=== PATIENT | female | born 1970 | race Caucasian/White ===

== ENCOUNTER 2017-03-31 07:48 | Inpatient (IN) | payer OTHER ==
[~2017-03-31] VITALS: Ht 149.9 cm; Wt 45.4 kg
[2017-03-31] VITALS (7 sets, daily range): BP systolic 99–211; BP diastolic 64–129
--- NOTE | 2017-03-31 08:20 | NUR ---
PT AMBULATED TO BED 3.
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
--- NOTE | 2017-03-31 08:23 | NUR ---
Patient being evaluated by Dr. Reina at bedside.
[2017-03-31] MEDS ORDERED: NACL 0.9% 1,000 ML IV SCH (08:26)
[2017-03-31] MEDS ORDERED: NACL 0.9% 1,000 ML IV ONE (08:28)
[2017-03-31] MEDS ORDERED: cefTRIAXone 2,000 MG in DEXTROSE 5% 100 ML IV ONE (08:30)
--- NOTE | 2017-03-31 08:40 | NUR ---
Ultrasound at bedside.
[2017-03-31 08:52] LABS: BASOPHILS # (AUTO) 0.2 K/uL (0.00-0.22); EOSINOPHILS # (AUTO) 0.2 K/uL (0-0.4); LYMPHOCYTES # (AUTO) 1.3 K/uL (2.5-16.5); MONOCYTES # (AUTO) 0.6 K/uL (0.8-1.0)
[2017-03-31] MEDS ORDERED: cefTRIAXone 2,000 MG VIAL ONE (08:55)
[2017-03-31 08:58] LABS: BASOPHILS % (AUTO) 2.7 % (0.0-2.0); EOSINOPHILS % (AUTO) 2.3 % (0.0-4.0); HEMATOCRIT 44.3 % (36-48); HEMOGLOBIN 14.1 g/dL (12.0-16.0); LYMPHOCYTES % (AUTO) 18.1 % (20.5-51.1); MEAN CORPUSCULAR HEMOGLOBIN 27 pg (27-31); MEAN CORPUSCULAR HGB CONC 32 g/dL (33-37); MEAN CORPUSCULAR VOLUME 85 fL (80-94); MONOCYTES % (AUTO) 9.1 % (1.7-9.3); NEUTROPHILS # (AUTO) 4.7 K/uL (1.8-7.7); NEUTROPHILS % (AUTO) 67.8 % (42.2-75.2); PLATELET COUNT (AUTO) 318 K/uL (140-450); RED BLOOD CELL COUNT(AUTO) 5.21 MIL/uL (4.20-5.40); RED CELL DISTRIBUTION WIDTH 12.4 % (11.6-13.7)
[2017-03-31 09:06] LABS: APPEARANCE,URINE HAZY (CLEAR); BILIRUBIN,URINE NEGATIVE (NEGATIVE); BLOOD, URINE TRACE-I (NEGATIVE); COLOR,URINE YELLOW (YELLOW); LEUKOCYTE ESTERASE ,URINE NEGATIVE (NEGATIVE); NITRITE, URINE NEGATIVE (NEGATIVE); PH,URINE 6.5 (5.0-9.0); PROTEIN,URINE NEGATIVE (NEGATIVE); UGLUCOSE 3+ (NEGATIVE); UROBILINOGEN,URINE 0.2 EU/dL (0.2 - 1)
[2017-03-31 09:07] LABS: ALBUMIN 3.5 g/dL (3.4-5.0); ANION GAP 13.2 (8-16); CALCIUM 8.7 mg/dL (8.5-10.1); CARBON DIOXIDE 28.7 mmol/L (21-32); CREATININE 0.7 mg/dL (0.6-1.3); TOTAL BILIRUBIN 0.4 mg/dL (0.0-1.0); TOTAL PROTEIN, SERUM 7.8 g/dL (6.4-8.2)
[2017-03-31 09:08] LABS: POTASSIUM 2.9 mmol/L (3.5-5.1)
[2017-03-31 09:10] LABS: INR 1.1 (0.8-1.2); PARTIAL THROMBOPLASTIN TIME 25.6 secs (22-35.6); PROTHROMBIN TIME 10.3 secs (10.8-13.4)
[2017-03-31] MEDS ORDERED: POTASSIUM CHL 40 MEQ/ D5-1/2NS 1,000 ML IV ONE (09:10)
--- NOTE | 2017-03-31 09:10 | NUR ---
X-Ray at bedside.
[2017-03-31 09:11] LABS: AMPHETAMINE, URINE POS. ng/ml (NEG <=1000); BARBITURATE, URINE NEG. ng/ml (NEG <=200); BENZODIAZEPINE, URINE NEG. ng/mL (NEG <=200); CANNABINOID, URINE NEG. ng/mL (NEG <=50); COCAINE, URINE NEG. ng/mL (NEG <=300); OPIATE, URINE NEG. ng/mL (NEG <=2000); PHENCYCLIDINE SCREEN,URINE NEG. ng/mL (NEG <=25)
[2017-03-31 09:12] LABS: ALANINE AMINOTRANSFERASE 19 U/L (12-78); ALBUMIN 3.5 g/dL (3.4-5.0); ALCOHOL, BLOOD < 3 mg/dL (<3); ALKALINE PHOSPHATASE 138 U/L (46-116); ASPARTATE AMINOTRANSFERASE 20 U/L (15-37); BILIRUBIN,DIRECT 0.1 mg/dL (0.0-0.3); TOTAL BILIRUBIN 0.4 mg/dL (0.0-1.0); TOTAL PROTEIN, SERUM 7.9 g/dL (6.4-8.2)
[2017-03-31 09:20] LABS: WBC,URINE 0-5 (RARE) /HPF (0-5)
[2017-03-31 09:21] LABS: BACTERIA,URINE FEW /HPF (None Seen); MUCUS,URINE 2+ /LPF (None Seen); SQUAMOUS EPITHELIAL CELL,UR 4-10 (MOD) /LPF (0-3 (FEW))
[2017-03-31 09:25] LABS: LACTIC ACID 1.8 mmol/L (0.4-2.0)
--- NOTE | 2017-03-31 10:12 | NUR ---
Patient appears to be resting comfortably in bed. Respirations even and unlabored. Will continue to monitor.
[2017-03-31] MEDS ORDERED: HYDROmorphone 1 MG/ML AMP IVP ONE (10:45)
--- NOTE | 2017-03-31 11:43 | NUR ---
REPORT CALLED TO AMAURY ROTHMAN
--- NOTE | 2017-03-31 11:49 | NUR ---
AWAITING ADMITTING ORDERS TO TAKE PT TO FLOOR; WILL CONTINUE TO MONITOR.
[2017-03-31] MEDS: NACL 0.9% 1,000 ML IV SCH (12:11)
[2017-03-31] MEDS ORDERED: DEXTROSE 50% 50 ML SYR IVP PRN ×2 (12:15→14:20)
[2017-03-31] MEDS ORDERED: LORazepam 2 MG/ML VIAL IVP PRN (12:15)
[2017-03-31] MEDS ORDERED: ACETAMINOPHEN 325 MG TAB PO PRN (12:15)
[2017-03-31] MEDS ORDERED: ONDANSETRON 4 MG/2 ML VIAL IVP PRN (12:15)
--- NOTE | 2017-03-31 12:20 | NUR ---
Patient will be admitted to care of DR. ANTUNEZ. Admited to TELEMETRY. Will go to room 109A. Belongings list completed. Report to AMAURY ROTHMAN.
--- NOTE | 2017-03-31 12:25 | NUR ---
PT ARRIVED ON UNIT VIA GURNEY. PT IS AAOX4 AND SHOWS NO S/S OF DISTRESS. PT AMB TO BED WITH STEADY GAIT. PT IV NOTED ON THE L AC 20 GAUGE. PT ON ROOM AIR. PT DENIES PAIN. NOTED REDNESS ON THE RIGHT ARM AND RIGHT BREAST. PT BED IS LOWERED, SEMI-FOWLERS, AND WITH CALL LIGHT WITHIN REACH. WILL CONTINUE TO MONITOR.
[2017-03-31] MEDS ORDERED: PIPERACILLIN/TAZOBACTAM 3.375 GM in DEXTROSE 5% 50 ML IV SCH (13:00)
--- NOTE | 2017-03-31 13:30 | NUR ---
PT RIGHT ARM IS RED TENDER AND SWOLLEN. RIGHT BREAST IS DARK RED, INFLAMED, AND HARD TO THE TOUCH. RIGHT NIPPLE HAS WHITE DISCHARGE. PT STATES NO PAIN AT THIS TIME AND SHOWS NO S/S OF DISTRESS.
--- NOTE | 2017-03-31 14:00 | NUR ---
ADMINISTER SCHEDULED MEDICATION. PT TOLERATED WELL AND SHOWS NO S/S OF DISTRESS. PT HAS VISITORS AT BEDSIDE. WILL CONTINUE TO MONITOR.
[2017-03-31] MEDS: PIPER/TAZO 3.375GM/D5W PREMIX 50 ML IV SCH ×2 (14:01→20:33)
[2017-03-31] MEDS ORDERED: INSULIN LISPRO SLIDING SCALE 100 UNITS/ML VIAL SUBQ PRN (14:20)
[2017-03-31] MEDS ORDERED: LABETALOL 100 MG TAB PO SCH (14:30)
[2017-03-31] MEDS: POTASSIUM CHLORIDE 10 MEQ TABER PO SCH ×2 (15:28→20:32)
--- NOTE | 2017-03-31 15:30 | NUR ---
ADMINISTER SCHEDULED MEDICATION. PT TOLERATED WELL. PT SHOWS NO S/S OF DISTRESS. PT HAS FAMILY AT BEDSIDE.
--- NOTE | 2017-03-31 16:00 | NUR ---
PT IS IRRITABLE AND C/O PAIN AT THE RIGHT BREAST. WILL MEDICATE.
[2017-03-31] MEDS ORDERED: BLOOD GLUCOSE MONITORING 1 DEV DEV FS SCH (16:30)
--- NOTE | 2017-03-31 16:30 | NUR ---
ADMINISTERED PAIN MEDICATION. WILL REASSESS.
[2017-03-31] MEDS: BLOOD GLUCOSE MONITORING 1 DEV DEV FS SCH ×2 (16:31→20:48)
[2017-03-31] MEDS: HYDROcodone/APAP 5/325 MG 1 TAB TAB PO PRN ×2 (16:33→20:33)
[2017-03-31] MEDS: INSULIN LISPRO SLIDING SCALE 100 UNITS/ML VIAL SUBQ PRN ×2 (16:34→21:05)
[2017-03-31] MEDS ORDERED: amLODIPine 5 MG TAB PO SCH (16:45)
--- NOTE | 2017-03-31 17:10 | NUR ---
PT IS STILL COMPLAINING OF PAIN 07/04 WILL ADMINISTER OTHER FORM OF PRN MEDICATION.
--- NOTE | 2017-03-31 17:25 | NUR ---
ADMINISTERED PAIN MEDICATION. WILL REASSESS.
[2017-03-31] MEDS: MORPHINE SULFATE 2 MG/ML SYR IVP PRN ×2 (17:32→23:17)
--- NOTE | 2017-03-31 18:00 | NUR ---
REASSESS PT PAIN LEVEL. PT STATES IT IS STILL 8/10. BP 104/73, HR 88, SAT O2 96, RESPIRATIONS 15.
--- NOTE | 2017-03-31 19:02 | NUR ---
PT SEEN BY DR. ARCHER. WILL AWAIT ORDERS.
--- NOTE | 2017-03-31 19:20 | NUR ---
PT AMBULATED WITH ASSISTANCE TO THE BATHROOM. PT HAS STEADY GAIT. PT VOIDED. PT BP IS 107/89, HR 79, RESPIRATIONS 16. PT DENIES SOB, LIGHTHEADEDNESS, DIZZINESS, AND N/V. PT CONTINUES TO HAVE PAIN AT R BREAST. PT IS MADE AWARE OF HER BLOOD PRESSURE. PT RESTING IN BED LOWERED, SEMI-FOWLERS, AND WITH CALL LIGHT WITHIN REACH.
--- NOTE | 2017-03-31 19:35 | NUR ---
GAVE PT REPORT AT BEDSIDE. PT ENDORSED IN STABLE CONDITION.
--- NOTE | 2017-03-31 19:40 | NUR ---
RECEIVED REPORT ON PT FROM AM NURSE. PT ON STABLE CONDITION. JUST CAME BACK FROM THE BATHROOM WITH ASSISTANCE. ON TELE MONITOR. HAS IVF INFUSING WELL ON THE LT AC #20. RT BREAST IS RED AND INFLAMED. RT ARM IS SWOLLEN AND TENDER. PLAN OF CARE DISCUSSED AND VERBALIZED UNDERSTANDING. CALL LIGHT PLACED WITHIN EASY REACH. WILL CONTINUE TO MONITOR.
--- NOTE | 2017-03-31 22:15 | NUR ---
ASSESS PT AT THIS TIME. RESTING IN BED . STILL WITH PAIN BUT LESS THAN AN HOUR AFTER PAIN MED WAS GIVEN.
--- NOTE | 2017-03-31 22:43 | NUR ---
MADE ROUNDS . PT IS SLEEPING AT THIS TIME. NO S/S OF ANY PAIN NOTED.
--- NOTE | 2017-03-31 23:17 | NUR ---
PT AWAKE, CRYING, IN SEVERE RT BREAST PAIN. MEDICATED ORDERED. WILL CONTINUE TO MONITOR
[2017-04-01] MEDS: NACL 0.9% 1,000 ML IV SCH ×4 (00:41→23:28)
--- NOTE | 2017-04-01 03:00 | NUR ---
PT SLEEPING WELL AT THIS TIME. NO S/S OF ANY DISCOMFORT NOTED.
[2017-04-01 04:40] VITALS: BP 143/85
[2017-04-01] MEDS: PIPER/TAZO 3.375GM/D5W PREMIX 50 ML IV SCH ×3 (04:59→21:02)
--- NOTE | 2017-04-01 05:00 | NUR ---
ASLEEP. NO S/S OF ANY PAIN AT THIS TIME.
[2017-04-01 05:49] LABS: BASOPHILS # (AUTO) 0.1 K/uL (0.00-0.22); BASOPHILS % (AUTO) 1.6 % (0.0-2.0); EOSINOPHILS # (AUTO) 0.2 K/uL (0-0.4); EOSINOPHILS % (AUTO) 2.8 % (0.0-4.0); HEMATOCRIT 37.3 % (36-48); HEMOGLOBIN 11.9 g/dL (12.0-16.0); LYMPHOCYTES # (AUTO) 1.5 K/uL (2.5-16.5); LYMPHOCYTES % (AUTO) 22.9 % (20.5-51.1); MEAN CORPUSCULAR HEMOGLOBIN 27 pg (27-31); MEAN CORPUSCULAR HGB CONC 32 g/dL (33-37); MEAN CORPUSCULAR VOLUME 86 fL (80-94); MONOCYTES # (AUTO) 0.6 K/uL (0.8-1.0); MONOCYTES % (AUTO) 9.5 % (1.7-9.3); NEUTROPHILS % (AUTO) 63.2 % (42.2-75.2); PLATELET COUNT (AUTO) 276 K/uL (140-450); RED BLOOD CELL COUNT(AUTO) 4.36 MIL/uL (4.20-5.40); RED CELL DISTRIBUTION WIDTH 12.8 % (11.6-13.7); WHITE BLOOD COUNT (AUTO) 6.4 K/uL (4.8-10.8)
[2017-04-01] MEDS: BLOOD GLUCOSE MONITORING 1 DEV DEV FS SCH ×4 (05:58→21:02)
[2017-04-01 06:39] LABS: ALBUMIN 2.6 g/dL (3.4-5.0); ANION GAP 11.7 (8-16); CALCIUM 7.9 mg/dL (8.5-10.1); CARBON DIOXIDE 24.5 mmol/L (21-32); MAGNESIUM 1.8 mg/dL (1.8-2.4); POTASSIUM 4.2 mmol/L (3.5-5.1); TOTAL BILIRUBIN 0.3 mg/dL (0.0-1.0)
[2017-04-01] MEDS: INSULIN LISPRO SLIDING SCALE 100 UNITS/ML VIAL SUBQ PRN ×4 (06:44→21:02)
--- NOTE | 2017-04-01 06:44 | NUR ---
BLOOD SUGAR WAS CHECKED THIS AM. RESULT 181. INSULIN COVERAGE GIVEN.
[2017-04-01] MEDS: POTASSIUM CHLORIDE 10 MEQ TABER PO SCH ×2 (06:49→17:59)
[2017-04-01 07:02] LABS: CREATININE 0.3 mg/dL (0.6-1.3)
--- NOTE | 2017-04-01 07:15 | NUR ---
ENDORSED PT IN STABLE CONDITION TO AM NURSE.
--- NOTE | 2017-04-01 07:16 | NUR ---
RECEIVED PT ASLEEP BUT EASILY AROUSABLE, AAOX4 WITH NO S/S OF RESPIRATORY DISTRESS OR DISCOMFORT. WITH IV ACCESS AT LEFT AC INFUSING FLUIDS WELL. WITH RIGHT BREAST SWELLING AND ABSCESS, NO DRAINAGE NOTED. SWELLING OF RIGHT HAND NOTED. DISCUSSED PLAN OF CARE, PT VERBALIZED UNDERSTANDING. CALL LIGHT WITHIN REACH, WILL CONTINUE TO MONITOR.
[2017-04-01 08:00] VITALS: BP 143/87
[2017-04-01] MEDS: amLODIPine 5 MG TAB PO SCH (08:50)
[2017-04-01] MEDS: MORPHINE SULFATE 2 MG/ML SYR IVP PRN ×2 (08:51→18:09)
[2017-04-01] MEDS: ENOXAPARIN 40 MG/0.4 ML SYR SUBQ SCH (08:51)
--- NOTE | 2017-04-01 08:51 | NUR ---
DUE MEDS GIVEN, PT TOLERATED WELL. PT COMPLIANED OF PAIN ON RIGHT BREAST, MORPHINE GIVEN. DR ANTUNEZ AT BEDSIDE
--- NOTE | 2017-04-01 10:20 | NUR ---
PT ASLEEP, NO S/S OF DISTRESS NOTED. CALL LIGHT WITHIN REACH, WILL CONTINUE TO MONITOR
[2017-04-01 12:00] VITALS: BP 137/87
--- NOTE | 2017-04-01 12:20 | NUR ---
PT PICKED UP BY RADIOLOGY FOR CT WITH CONTRAST ON A WHEELCHAIR IN STABLE CONDITION
--- NOTE | 2017-04-01 13:15 | NUR ---
PT BACK FROM CT, EATING LUNCH WITH GOOD APPETITE
--- NOTE | 2017-04-01 13:20 | NUR ---
LEN FROM [place] AT BEDSIDE
--- NOTE | 2017-04-01 13:25 | NUR ---
CLINICAL REVIEW FAXED TO [facility] AND [facility].
[2017-04-01] MEDS: HYDROcodone/APAP 5/325 MG 1 TAB TAB PO PRN (13:59)
--- NOTE | 2017-04-01 13:59 | NUR ---
FAXED REVIEW TO [facility] AT [phone] FAXED REVIEW TO [facility] AT [phone]. PHONE NUMBER ADRIANA AT [phone]
--- NOTE | 2017-04-01 15:18 | NUR ---
PT ASLEEP, NO S/S OF DISTRESS. CALL LIGHT WITHIN REACH, WILL CONTINUE TO MONITOR.
[2017-04-01 16:00] VITALS: BP 127/78
--- NOTE | 2017-04-01 16:11 | NUR ---
PT LEFT UNIT FOR NUCLEAR MEDICINE IN STABLE CONDITION ON A WHEELCHAIR ACCOMPANIED BY LEN
--- NOTE | 2017-04-01 17:50 | NUR ---
PT BACK TO UNIT FROM NM. STABLE
--- NOTE | 2017-04-01 19:28 | NUR ---
PT ENDORSED TO AMAURY STUBBS IN STABLE CONDITION FOR CONTINUITY OF CARE
--- NOTE | 2017-04-01 19:30 | NUR ---
ASSUMED CARE OF PATIENT, AWAKE, ALERT AND ORIENTED. FAMILY AT BEDSIDE. NO COMPLAINS. CALL LIGHT WITHIN REACH.
[2017-04-01 20:00] VITALS: BP 123/74
--- NOTE | 2017-04-01 20:00 | NUR ---
PLAN OF CARE DISCUSSED WITH PATIENT, VERBALIZED UNDERSTANDING WELL. CALL LIGHT WITHIN REACH. VITAL SIGNS STABLE. AFEBRILE.
--- NOTE | 2017-04-01 21:00 | NUR ---
DUE MEDS GIVEN. HS SNACK GIVEN. CALL LIGHT WITHIN REACH.
--- NOTE | 2017-04-02 00:15 | NUR ---
VITAL SIGNS STABLE. NO COMPLAINS. AFEBRILE. CALL LIGHT WITHIN REACH.
[2017-04-02 00:41] VITALS: BP 136/81
[2017-04-02] MEDS: MORPHINE SULFATE 2 MG/ML SYR IVP PRN ×3 (02:22→16:53)
[2017-04-02 04:28] VITALS: BP 138/84
--- NOTE | 2017-04-02 04:29 | NUR ---
SLEEPING WELL, EASILY AROUSABLE. NO COMPLAINS. AFEBRILE. VITAL SIGNS STABLE. CALL LIGHT WITHIN REACH.
[2017-04-02] MEDS: PIPER/TAZO 3.375GM/D5W PREMIX 50 ML IV SCH ×3 (04:43→20:01)
[2017-04-02] MEDS: BLOOD GLUCOSE MONITORING 1 DEV DEV FS SCH ×4 (06:08→20:28)
[2017-04-02] MEDS: INSULIN LISPRO SLIDING SCALE 100 UNITS/ML VIAL SUBQ PRN ×4 (06:11→20:29)
[2017-04-02 07:00] LABS: BASOPHILS # (AUTO) 0.1 K/uL (0.00-0.22); EOSINOPHILS # (AUTO) 0.2 K/uL (0-0.4); EOSINOPHILS % (AUTO) 2.6 % (0.0-4.0); HEMATOCRIT 36.3 % (36-48); HEMOGLOBIN 11.7 g/dL (12.0-16.0); LYMPHOCYTES % (AUTO) 12.5 % (20.5-51.1); MEAN CORPUSCULAR HEMOGLOBIN 27 pg (27-31); MEAN CORPUSCULAR HGB CONC 32 g/dL (33-37); MEAN CORPUSCULAR VOLUME 85 fL (80-94); MONOCYTES # (AUTO) 0.7 K/uL (0.8-1.0); MONOCYTES % (AUTO) 8.8 % (1.7-9.3); NEUTROPHILS # (AUTO) 5.9 K/uL (1.8-7.7); NEUTROPHILS % (AUTO) 75.1 % (42.2-75.2); PLATELET COUNT (AUTO) 248 K/uL (140-450); RED BLOOD CELL COUNT(AUTO) 4.28 MIL/uL (4.20-5.40); RED CELL DISTRIBUTION WIDTH 12.7 % (11.6-13.7); WHITE BLOOD COUNT (AUTO) 7.9 K/uL (4.8-10.8)
--- NOTE | 2017-04-02 07:17 | NUR ---
RECEIVED PT ASLEEP BUT EASILY AROUSABLE, AAOX4 WITH NO S/S OF RESPIRATORY DISTRESS, WITH IV ACCESS AT LEFT ACV INFUSING FLUIDS WELL. WITH RIGHT BREAST ABSCESS AND RIGHT ARM HARD TO TOUCH. DISCUSSED PLAN OF CARE, PT VERBALIZED UNDERSTANDING. CALL LIGHT WITHIN REACH, WILL CONTINUE TO MONITOR.
--- NOTE | 2017-04-02 07:17 | NUR ---
ENDORSED CARE AT BEDSIDE WITH ISHAAN REBOLLEDO, PATIENT IN STABLE CONDITION.
[2017-04-02 08:00] VITALS: BP 138/91
[2017-04-02] MEDS: POTASSIUM CHLORIDE 10 MEQ TABER PO SCH ×2 (08:10→16:56)
[2017-04-02] MEDS: amLODIPine 5 MG TAB PO SCH (08:10)
[2017-04-02] MEDS: ENOXAPARIN 40 MG/0.4 ML SYR SUBQ SCH (08:15)
--- NOTE | 2017-04-02 08:16 | NUR ---
DUE MEDS GIVEN, PT TOLERATED WELL. CALL LIGHT WITHIN REACH, WILL CONTINUE TO MONITOR
--- NOTE | 2017-04-02 10:02 | NUR ---
PT AWAKE WITH RELATIVES AT BEDSIDE.
[2017-04-02 12:00] VITALS: BP 146/85
--- NOTE | 2017-04-02 12:06 | NUR ---
CM NOTE CONCURRENT REVIEW SENT TO [facility] FAX# [phone] PH# RADHA [phone] APRIL [phone] [facility]ND TO [facility] FAX# [phone] PH# ADRIANA [phone]
[2017-04-02 12:21] LABS: CANCER ANTIGEN CA 15-3 16.3 U/mL (0.0-25.0); CARCINOEMBRYONIC AG 1.4 ng/mL (0.0-4.7)
[2017-04-02] MEDS: HYDROcodone/APAP 5/325 MG 1 TAB TAB PO PRN ×2 (12:22→19:54)
--- NOTE | 2017-04-02 13:01 | NUR ---
PER RADIOLOGY, THORACENTESIS CANNOT BE PERFORMED DUE TO NOT ENOUGH FLUID
[2017-04-02 13:40] LABS: ANION GAP 10.5 (8-16); CALCIUM 8.1 mg/dL (8.5-10.1); CARBON DIOXIDE 26.7 mmol/L (21-32); CREATININE 0.4 mg/dL (0.6-1.3); POTASSIUM 4.2 mmol/L (3.5-5.1)
--- NOTE | 2017-04-02 14:02 | NUR ---
NOTIFIED DR ANTUNEZ REGARDING US CHEST RESULT, PER RADIOLOGY, DR FIGUEROA NOT ABLE TO PERFORM THORACENTESIS DUE TO NOT ENOUGH FLUID
[2017-04-02] MEDS: NACL 0.9% 1,000 ML IV SCH (14:13)
[2017-04-02 16:00] VITALS: BP 138/80
--- NOTE | 2017-04-02 16:31 | NUR ---
PT AWAKE AND TALKING TO RELATIVES, NO S/S OF DISTRESS, WILL CONTINUE TO MONITOR
--- NOTE | 2017-04-02 18:30 | NUR ---
PT ASLEEP, KEPT SAFE AND COMFORTABLE. CALL LIGHT WITHIN REACH, WILL CONTINUE TO MONITOR.
--- NOTE | 2017-04-02 19:28 | NUR ---
ENDORSED PT TO AMAURY LOPEZ FOR CONTINUITY OF CARE IN STABLE CONDITION
--- NOTE | 2017-04-02 19:30 | NUR ---
RECEIVED REPORT FROM JERRI REBOLLEDO AT BEDSIDE. PT IS ALERT AWAKE ORIENTED X4. INITIAL ASSESSMENT DONE. NO S/S OF RESPIRATORY DISTRESS OR SOB NOTED. C/O PAIN ON HER RIGHT BREAST SCALING 6/10. WILL GIVE PRN PAIN MEDICATION ORDERED. PLAN OF CARE REVIEWED TO PT AND VERBALIZED UNDERSTANDING. CALL LIGHT WITHIN REACH. WILL CONTINUE TO MONITOR.
[2017-04-02 20:00] VITALS: BP 134/77
[2017-04-03] VITALS: BP 127/74
[2017-04-03] MEDS: MORPHINE SULFATE 2 MG/ML SYR IVP PRN ×2 (00:12→08:31)
--- NOTE | 2017-04-03 00:15 | NUR ---
PT IS SLEEPING RIGHT NOW BUT EASILY AROUSABLE. NO S/S OF ANY DISCOMFORT AT THIS TIME. ALL NEEDS ARE ATTENDED. CALL LIGHT WITHIN REACH. WILL CONTINUE TO MONITOR.
[2017-04-03] MEDS: NACL 0.9% 1,000 ML IV SCH (02:47)
[2017-04-03 04:00] VITALS: BP 123/75
[2017-04-03] MEDS: PIPER/TAZO 3.375GM/D5W PREMIX 50 ML IV SCH ×2 (05:22→12:19)
--- NOTE | 2017-04-03 06:00 | NUR ---
AM CARE RENDERED. BED LINEN CHANGED. INSTRUCTED PT TO REPOSITION. KEPT CLEAN AND DRBabatunde CALL LIGHT WITHIN REACH. WILL CONTINUE TO MONITOR.
[2017-04-03] MEDS: BLOOD GLUCOSE MONITORING 1 DEV DEV FS SCH ×2 (06:19→12:18)
[2017-04-03] MEDS: INSULIN LISPRO SLIDING SCALE 100 UNITS/ML VIAL SUBQ PRN ×2 (06:20→12:17)
[2017-04-03] MEDS: POTASSIUM CHLORIDE 10 MEQ TABER PO SCH ×2 (06:47→16:28)
--- NOTE | 2017-04-03 07:30 | NUR ---
PT HAS NO S/S OF ANY DISCOMFORT. PLAN OF CARE ENDORSED TO AM SHIFT NURSE FOR CONTINUITY OF CARE.
--- NOTE | 2017-04-03 07:40 | NUR ---
RECEIVED SBAR REPORT AT BEDSIDE, PATIENT ALERT ORIENTED X 4, NO SIGNS OF DISTRESS NOTED.
[2017-04-03 08:00] VITALS: BP 146/83
[2017-04-03] MEDS: amLODIPine 5 MG TAB PO SCH (08:35)
[2017-04-03] MEDS: ENOXAPARIN 40 MG/0.4 ML SYR SUBQ SCH (08:38)
--- NOTE | 2017-04-03 09:02 | NUR ---
CONCURRENT REVIEW SENT TO [facility] FAX# [phone] PH# RADHA [phone] APRIL [phone] [facility]ND TO [facility] FAX# [phone] PH# ADRIANA [phone]
[2017-04-03] MEDS ORDERED: AMLO5TAB4 PO (10:27)
[2017-04-03] MEDS ORDERED: METF850T PO (10:27)
[2017-04-03] MEDS ORDERED: ACET-1182 PO (10:27)
[2017-04-03] MEDS ORDERED: CLIN300C2 PO (10:29)
[2017-04-03] MEDS ORDERED: ACET1TAB93 PO (10:52)
--- NOTE | 2017-04-03 11:41 | NUR ---
Left message for Ambreen Castano of [facility] regarding to inform her patient will be d/c today and to schedule for outpatient surgical oncology follow up. Ambreen phone number [phone] ext [phone]
[2017-04-03 12:15] VITALS: BP 163/96
[2017-04-03] MEDS: HYDROcodone/APAP 5/325 MG 1 TAB TAB PO PRN ×2 (12:15→16:28)
--- NOTE | 2017-04-03 12:18 | NUR ---
Spoke with the patient and the patient's nurse, patient's sister will make the appointment with her PCP. and informed her to let her pcp put for her a schedule surgical oncologist
--- NOTE | 2017-04-03 13:30 | NUR ---
PT SEEN BY DR. NASCIMENTO.
--- NOTE | 2017-04-03 15:08 | NUR ---
CM NOTE SPOKE WITH MARIELA OF DR. YOON THOMPSON'S OFFICE (THE PATIENT'S PCP) PH# [phone]. FAXED HER THE INFORMATION REQUESTED REGARDING THE PATIENT FAX# [phone]. PATIENT IS SCHEDULED TO BE SEEN BY PCP DR. YOON THOMPSON IN HIS OFFICE AT [address] [place] [address] ON APRIL 10, 2017 10:15AM TO BE REFERRED TO AN ONCOLOGIST. SPOKE WITH PATIENT BEDSIDE, PATIENT AWARE.
--- NOTE | 2017-04-03 15:20 | NUR ---
1400 MET WITH PT AT BEDSIDE TO DISCUSS NEED FOR FOLLOW UP APPT WITH PCP FOR ONCOLOGY REFERRAL. PT STATED THAT HER ASSIGNED PCP IS A DR YOON THOMPSON BUT SHE HAS NEVER SEEN THE PHYSICIAN. INFORMED HER THAT CM WILL ATTEMPT TO CONTACT DR THOMPSON AND PROVIDE NECESSARY INFORMATION TO EXPEDITE OBTAINING AN APPT DILEEP. PT SEEMS TO BE AWARE OF THE URGENCY FOR HER TO HAVE AN ONCOLOGY REFERRAL AND THE IMPORTANCE OF SEEING THE PCP DILEEP.
[2017-04-03 16:00] VITALS: BP 140/87
--- NOTE | 2017-04-03 17:20 | NUR ---
DISCHARGE INSTRUCTION AND PRESCRIPTION GIVEN TO THE PATIENT, HER SISTER, AND AT BEDSIDE, VERBALIZED UNDERSTANDING. IV REMOVED CANNULA INTACT, PRESSURE DRESSING APPLIED, ID BAND REMOVED.
--- NOTE | 2017-04-03 17:30 | NUR ---
WHEELED OUT TO THE MAIN LOBBY IN A STABLE CONDITION, NO DISTRESS, NO COMPLAIN OF PAIN AT THIS TIME. PATIENT D/C HOME WITH FAMILY.
== END 2017-04-03 17:30 | disposition home or self-care (01) | DRG 385 ==
LOC: MED 07:48 → MTU 12:11
PROVIDERS: ADMIT Hospitalist; ATTEND Hospitalist
DX: N61.1 Abscess of the breast and nipple (principal); J90 Pleural effusion, not elsewhere classified; F15.10 Other stimulant abuse, uncomplicated; L03.113 Cellulitis of right upper limb; I10 Essential (primary) hypertension; E11.9 Type 2 diabetes mellitus without complications; N63 Unspecified lump in breast; E87.6 Hypokalemia; I89.0 Lymphedema, not elsewhere classified; F17.210 Nicotine dependence, cigarettes, uncomplicated; Z86.32 Personal history of gestational diabetes; Z91.14 Patient's other noncompliance with medication regimen; Z90.49 Acquired absence of other specified parts of digestive tract; Z80.1 Family history of malignant neoplasm of trachea, bronchus and lung
CPT/HCPCS: 36415; 71010; 71270; 76604; 76641; 78306; 80048; 80053; 80076; 80305; 81001; 81025; 82150; 82378; 82948; 83605; 83690; 83735; 85025; 85610; 85730; 86300; 87040; 87081; 93005; 96365; 96366; 96367; 96375; 99285; A9503; G0482; J0696; J1170; J1650; J1815; J2270; J2543; J7030; Q0092; Q9967